=== PATIENT | male | born 1960 | race Caucasian/White ===

== ENCOUNTER 2021-11-19 13:55 | Emergency (ER) | payer BC | END 2021-11-19 16:40 | disposition home or self-care (01) | LOC: ER1 13:55 | DX: S71.112A Laceration without foreign body, left thigh, initial encounter (principal); I10 Essential (primary) hypertension; Z85.46 Personal history of malignant neoplasm of prostate; W28.XXXA Contact with powered lawn mower, initial encounter | CPT/HCPCS: 12002; 99282 ==